=== PATIENT | female | born 1975 ===

== ENCOUNTER 2017-08-29 14:46 | Emergency (ER) | payer OTHER ==
[2017-08-29] MEDS ORDERED: DIPHENOXYLATE HCL/ATROPINE 1 EACH TABLET PO ONE (15:35)
[2017-08-29] MEDS ORDERED: ONDANSETRON HCL 4 MG TAB.RAPDIS PO ONE (15:35)
--- NOTE | 2017-08-29 15:43 | ED Physician Documentation ---
Nausea/Vomiting/Diarrhea - HISTORIAN Historian: patient - HPI Stated Complaint: nausea/vomiting/diarrhea Chief Complaint: Nausea,Vomiting,Diarrhea Onset: days ago (2) Duration: sudden-onset Timing: sudden onset Context: denies: out of country travel, bad food, recent trauma Severity: moderate - Associated Symptoms Vomiting: mild Diarrhea: mild Abdominal Pain: cramping - ROS CONST: no problems CVS/RESP: denies: chest pain, shortness of breath, cough, dry cough, non- productive cough, productive cough, bloody cough GI/: none EYES/ENT: none MS/SKIN/LYMPH: denies: joint pain, leg swelling, rash, swollen glands, ankle swelling NEURO/PSYCH: none - PAST HX Past History: none Other History: denies: gall stones, colon problems, Crohn's, ulcerative colitis , IBS, cardiac disease, AMI, CHF, A-Fib, hypertension, hepatitis, HIV Surgeries/Procedures: none Immunizations: referred to PCP Allergies/Adverse Reactions: Allergies Allergy/AdvReac Type Severity Reaction Status Date / Time No Known Allergies Allergy Unverified 08/29/17 15:04 Home Medications: Ambulatory Orders Medication Instructions Recorded NK [NK] 08/29/17 - SOCIAL HX Smoking History: other (e cigarettes) Alcohol Use: occasionally Drug Use: none - FAMILY HX Family History: none - VITAL SIGNS Vital Signs: Vital Signs Temp Pulse Resp BP Pulse Ox 98.5 F 80 14 112/56 98 08/29/17 14:51 08/29/17 15:53 08/29/17 15:53 08/29/17 15:53 08/29/17 15:53 - REVIEWED ASSESSMENTS Nursing Assessment Reviewed: Yes Vitals Reviewed: Yes Progress - Results/Orders Results/Orders: no testng ordered - Progress Progress: pt. given zofran 4 mm and lomotil p.o. in er Critical Care Note - Critical Care Note Total Time (mins): 0 ED Results Lab/Radiology - Lab Results Lab Results: none ordered - Radiology Radiology Impressions: none ordered - Orders Orders: ED Orders Category Date Time Status Diphenoxylate HCl/Atropine [Lomotil] Med 08/29/17 15:35 Discontinued 1 each PO NOW ONE Ondansetron HCl Rapdis [Zofran Odt] Med 08/29/17 15:35 Discontinued 4 mg PO NOW ONE Nausea Physical Exam - EXAM General Appearance: no acute distress, alert EENT: eye inspection normal, ENT inspection normal, pharynx normal, no signs of dehydration, REINA Neck: normal inspection, thyroid normal, supple Respiratory: no resp distress, chest non-tender, breath sounds normal CVS: reg rate & rhythm, heart sounds normal, equal pulses Abdomen: non-tender, no organomegaly, tenderness Back: non-tender, painless ROM Skin: warm/dry, normal color Extremities: non-tender, normal range of motion, no evidence of injury Neuro/Psych: oriented X3, CN's nml as tested, motor nml, sensation nml Discharge Clincal Impression: Gastroenteritis Referrals: Primary Doctor,No [Primary Care Provider] - 2 Days Comments: Discharged in stable condition with scripts for Lomotil 1 p.o. qid prn diarrhea # 10, Zofran 4 mg 1 p.o. qid prn n/v # 10. Condition: Stable Disposition: 01 HOME, SELF-CARE Decision to Admit: NO Decision Time: 15:43
[2017-08-29 15:55] VITALS: BP 112/56
== END 2017-08-29 15:53 | disposition home or self-care (01) ==
LOC: ED 14:46
DX: K52.9 Noninfective gastroenteritis and colitis, unspecified (principal)
CPT/HCPCS: 99283; A9270